=== PATIENT | male | born 1965 | race Hispanic/Latino ===

== ENCOUNTER 2022-12-17 15:12 | Emergency (ER) | payer OTHER ==
[2022-12-17] MEDS ORDERED: CYCLOBENZAPRINE 10 MG TAB ONE (16:10)
[2022-12-17] MEDS ORDERED: HYDROMORPHONE HCL 1 MG/ML INJ ONE (16:11)
[2022-12-17] MEDS ORDERED: ONDANSETRON 4 MG/2 ML VIAL ONE (16:11)
[2022-12-17] MEDS ORDERED: KETOROLAC 30 MG/ML INJ ONE (16:11)
--- NOTE | 2022-12-17 16:58 | RAD REPORT ---
EXAM DESCRIPTION: RAD - Lumbar Spine 3 Views - 12/17/2022 4:52 pm CLINICAL HISTORY: RADICULOPATHY Radiculopathy COMPARISON: No comparisons FINDINGS: Vertebral body heights appear maintained. No compression fracture noted. Mild disc thinnin g with posterior osteophyte formation lower lumbar levels. No spondylolysis or spondylolisthesis. IMPRESSION: Mild lower lumbar degenerative spondylosis.
--- NOTE | 2022-12-17 17:01 | EDPHYS ---
Physician Documentation [facility] Name: Jeffrey Bustamante Jr Age: 57 yrs Sex: Male : 1965 Arrival Date: 12/17/2022 Time: 15:12 Bed 14 Private MD: ED Physician Leilani Dennis HPI: 12/17 15:54 This 57 yrs old Male presents to ER via Wheelchair with complaints of Low Back sp3 Pain, Fall Injury. 15:54 57-year-old male with history of hypertension and diabetes and prior history of sp3 radiculopathy on the right side as well as cervical radiculopathy now presents with acute pain in the right lower back extending posteriorly into his right lower leg. Patient denies being on any pain medication at this time he also denies any loss of bowel or bladder control or any other neurological problems. 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 Patient has never had a stroke or other TIA type symptoms in the past. He currently denies headache, neck pain, fever, URI symptoms, chest pain, shortness of breath, upper back pain, abdominal pain, nausea, vomiting, diarrhea, pain in any other extremity besides the right lower extremity, travel history, trauma, known sick contacts, or any other signs or symptoms on ROS at this time.. Historical: - Allergies: 15:46 No Known Allergies; me1 - Home Meds: 15:46 lisinopril [Active]; omeprazole [Active]; metformin [Active]; Farxiga oral [Active]; me1 Ozempic subcutaneous [Active]; triseba [Active]; - PMHx: 15:46 Diabetes mellitus; Hypertensive disorder; GERD; me1 - PSHx: 15:46 None; me1 - Immunization history:: Adult Immunizations unknown. - Social history:: Smoking status: Patient reports the use of cigarette tobacco products, smokes one-half pack cigarettes per day. ROS: 16:01 Constitutional: Negative for fever, chills, and weight loss, Eyes: Negative for injury, sp3 pain, redness, and discharge, Neck: Negative for injury, pain, and swelling, Cardiovascular: Negative for chest pain, palpitations, and edema, Respiratory: Negative for shortness of breath, cough, wheezing, and pleuritic chest pain, Abdomen/GI: Negative for abdominal pain, nausea, vomiting, diarrhea, and constipation, : Negative for injury, bleeding, discharge, and swelling, Skin: Negative for injury, rash, and discoloration. 16:01 All other systems are negative. Exam: 16:01 Constitutional: This is a well developed, well nourished patient who is awake, alert, sp3 and in no acute distress. Head/Face: Normocephalic, atraumatic. Eyes: Pupils equal round and reactive to light, extra-ocular motions intact. Lids and lashes normal. Conjunctiva and sclera are non-icteric and not injected. Cornea within normal limits. Periorbital areas with no swelling, redness, or edema. Neck: Trachea midline, no thyromegaly or masses palpated, and no cervical lymphadenopathy. Supple, full range of motion without nuchal rigidity, or vertebral point tenderness. No Meningismus. Chest/axilla: Normal chest wall appearance and motion. Nontender with no deformity. No lesions are appreciated. Cardiovascular: Regular rate and rhythm with a normal S1 and S2. No gallops, murmurs, or rubs. Normal PMI, no JVD. No pulse deficits. Respiratory: Lungs have equal breath sounds bilaterally, clear to auscultation and percussion. No rales, rhonchi or wheezes noted. No increased work of breathing, no retractions or nasal flaring. Abdomen/GI: Soft, non-tender, with normal bowel sounds. No distension or tympany. No guarding or rebound. No evidence of tenderness throughout. Skin: Warm, dry with normal turgor. Normal color with no rashes, no lesions, and no evidence of cellulitis. Psych: Awake, alert, with orientation to person, place and time. Behavior, mood, and affect are within normal limits. 16:01 Back: Positive pain on straight leg raise on the right side. No pain on palpation. Distal neurovascular exam is normal right lower extremity.. Vital Signs: 15:30 BP 162 / 111; Pulse 89; Resp 16; Pulse Ox 100% on R/A; db 15:42 BP 162 / 105; Pulse 91; Resp 17; Temp 97.7(O); Pulse Ox 100% on R/A; Weight 87.54 kg; me1 Height 5 ft. 10 in. ; Pain 9/10; 16:08 BP 145 / 90; Pulse 89; Resp 16; Pulse Ox 100% on R/A; db 16:56 BP 161 / 103; Pulse 79; Resp 16; Pulse Ox 98% on R/A; db 15:42 Body Mass Index 27.69 (87.54 kg, 177.8 cm) me1 15:42 Pain Scale: Adult me1 MDM: 15:45 Patient medically screened. sp3 16:04 Data reviewed: vital signs, nurses notes, radiologic studies. ED course: 57-year-old sp3 male with right lumbar radiculopathy. Patient will need outpatient MRI. Will obtain x-rays here to rule out any sort of bony abnormality or decreasing disc space. We will administer Dilaudid, ketorolac, Zofran IV and Flexeril p.o. Once pain is under control, will discharge patient home on p.o. pain control with orthopedic follow-up for continued work-up and treatment. I met highly suspicious for vascular abnormality, spinal cord compression, or other critical illness.. 16:55 ED course: X-rays demonstrate no significant findings other than mild disc space sp3 narrowing between L4 and L5. We will reevaluate patient and once he has improved, we will safely discharge him home on p.o. meds.. 16:59 ED course: Patient feels much improved. We will safely discharge him home at this time..sp3 12/17 15:49 Order name: Lumbar Spine (3 Views) XRAY; Complete Time: 16:59 sp3 Administered Medications: 16:10 Drug: HYDROmorphone IVP 1 mg Route: IVP; Site: right antecubital; db 17:18 Follow up: Response: No adverse reaction db 16:10 Drug: Ketorolac IVP 30 mg Route: IVP; Site: right antecubital; db 17:17 Follow up: Response: No adverse reaction db 16:10 Drug: Ondansetron IVP 4 mg Route: IVP; Site: right antecubital; db 17:17 Follow up: Response: No adverse reaction db 16:10 Drug: Cyclobenzaprine PO 10 mg Route: PO; db 17:17 Follow up: Response: No adverse reaction db Disposition Summary: 12/17/22 17:00 Discharge Ordered Location: Home sp3 Condition: Stable sp3 Diagnosis - Lumbar radiculopathy right side, low back pain sp3 Followup: sp3 - With: Arsh Guthrie MD - When: Upon discharge from the Emergency Department - Reason: Recheck today's complaints Discharge Instructions: - Discharge Summary Sheet sp3 - Lumbosacral Radiculopathy sp3 Forms: - Medication Reconciliation Form sp3 - Thank You Letter sp3 - Antibiotic Education sp3 - Prescription Opioid Use sp3 - Patient Portal Instructions sp3 - Leadership Thank You Letter sp3 Prescriptions: - Cyclobenzaprine 10 mg Oral Tablet - take 1 tablet by ORAL route every 8 hours As needed; 30 tablet; Refills: 0, sp3 Product Selection Permitted - Tramadol 50 mg Oral Tablet - take 1 tablet by ORAL route every 8 hours as needed; 12 tablet; Refills: 0, sp3 Product Selection Permitted - Medrol (Lex) 4 mg Oral Tablets, Dose Pack - take 1 tablet by ORAL route as directed - follow package instructions; 1 sp3 packet; Refills: 0, Product Selection Permitted Signatures: Dispatcher [employer] Leilani Cantrell MD MD sp3 Acacia Moraes, RN RN db Bhumi Campuzano, RN RN me1
--- NOTE | 2022-12-17 17:01 | ER ---
Nurse's Notes [facility] Name: Jeffrey Bustamante Jr Age: 57 yrs Sex: Male : 1965 Arrival Date: 12/17/2022 Time: 15:12 Bed 14 Private MD: Diagnosis: Lumbar radiculopathy right side, low back pain Presentation: 12/17 15:42 Chief complaint: Patient states: holding his toddler and turned to set the baby down me1 and started having pain to bilateral lower back with pain that shoots down the back of his right leg. Coronavirus screen: Vaccine status: Patient reports being unvaccinated. At this time, the client does not indicate any symptoms associated with coronavirus-19. Ebola Screen: No symptoms or risks identified at this time. Initial Sepsis Screen: Does the patient meet any 2 criteria? No. Patient's initial sepsis screen is negative. Does the patient have a suspected source of infection? No. Patient's initial sepsis screen is negative. Risk Assessment: Do you want to hurt yourself or someone else? Patient reports no desire to harm self or others. Onset of symptoms was December 17, 2022. 15:42 Method Of Arrival: Wheelchair me1 15:42 Acuity: ANUSHKA 3 me1 Historical: - Allergies: 15:46 No Known Allergies; me1 - Home Meds: 15:46 lisinopril [Active]; omeprazole [Active]; metformin [Active]; Farxiga oral [Active]; me1 Ozempic subcutaneous [Active]; triseba [Active]; - PMHx: 15:46 Diabetes mellitus; Hypertensive disorder; GERD; me1 - PSHx: 15:46 None; me1 - Immunization history:: Adult Immunizations unknown. - Social history:: Smoking status: Patient reports the use of cigarette tobacco products, smokes one-half pack cigarettes per day. Screenin:16 [facility] ED Fall Risk Assessment (Adult) History of falling in the last 3 months, db including since admission Yes- single mechanical fall (1 pt) Confusion or Disorientation No (0 pts) Intoxicated or Sedated No (0 pts) Impaired Gait No (0 pts) Mobility Assist Device Used No (0 pt) Altered Elimination No (0 pt) Score/Fall Risk Level 0 - 2 = Low Risk Oriented to surroundings, Maintained a safe environment. Abuse screen: Denies threats or abuse. Denies injuries from another. Nutritional screening: No deficits noted. Tuberculosis screening: No symptoms or risk factors identified. Assessment: 16:00 Pain: Pain currently is 10 out of 10 on a pain scale. Quality of pain is described as db radiating, sharp. 16:55 Reassessment: Patient appears in no apparent distress at this time. Patient and/or db family updated on plan of care and expected duration. Pain level reassessed. Patient is alert, oriented x 3, equal unlabored respirations, skin warm/dry/pink. PATIENT RETURNED TO ROOM FROM CT. 17:14 Reassessment: Patient appears in no apparent distress at this time. Patient and/or db family updated on plan of care and expected duration. Pain level reassessed. Patient is alert, oriented x 3, equal unlabored respirations, skin warm/dry/pink. Patient states feeling better. Patient states symptoms have improved. General: Appears in no apparent distress. comfortable, Behavior is calm, cooperative. Pain: Complains of pain in back. Vital Signs: 15:30 BP 162 / 111; Pulse 89; Resp 16; Pulse Ox 100% on R/A; db 15:42 BP 162 / 105; Pulse 91; Resp 17; Temp 97.7(O); Pulse Ox 100% on R/A; Weight 87.54 kg; me1 Height 5 ft. 10 in. ; Pain 9/10; 16:08 BP 145 / 90; Pulse 89; Resp 16; Pulse Ox 100% on R/A; db 16:56 BP 161 / 103; Pulse 79; Resp 16; Pulse Ox 98% on R/A; db 15:42 Body Mass Index 27.69 (87.54 kg, 177.8 cm) me1 15:42 Pain Scale: Adult me1 ED Course: 15:17 Patient arrived in ED. im 15:21 Leilani Dennis MD is Attending Physician. sp3 15:46 Triage completed. me1 15:47 Acacia Moraes, PORSHA is Primary Nurse. db 15:48 Arm band placed on Patient placed in an exam room. db 16:53 Lumbar Spine (3 Views) XRAY In Process Unspecified. EDMS 17:00 Arsh Guthrie MD is Referral Physician. sp3 17:12 No provider procedures requiring assistance completed. db 17:16 Patient has correct armband on for positive identification. Bed in low position. Call db light in reach. Side rails up X 1. Provided Education on: DISCHARGE. 17:16 IV discontinued, intact, bleeding controlled, No redness/swelling at site. db Administered Medications: 16:10 Drug: HYDROmorphone IVP 1 mg Route: IVP; Site: right antecubital; db 17:18 Follow up: Response: No adverse reaction db 16:10 Drug: Ketorolac IVP 30 mg Route: IVP; Site: right antecubital; db 17:17 Follow up: Response: No adverse reaction db 16:10 Drug: Ondansetron IVP 4 mg Route: IVP; Site: right antecubital; db 17:17 Follow up: Response: No adverse reaction db 16:10 Drug: Cyclobenzaprine PO 10 mg Route: PO; db 17:17 Follow up: Response: No adverse reaction db Medication: 17:17 VIS not applicable for this client. db Outcome: 17:00 Discharge ordered by . sp3 17:12 Discharged to home ambulatory, with family. db 17:12 Condition: stable 17:12 Discharge instructions given to patient, Instructed on discharge instructions, follow up and referral plans. Demonstrated understanding of instructions, Prescriptions given X 3. 17:18 Patient left the ED. db Signatures: Dispatcher [employer] Leilani Cantrell MD MD sp3 Acacia Moraes, RN RN db Romy Marcelo Michelle, RN RN me1
[2022-12-17 17:31] VITALS: TEMP 97.7
[2022-12-17 17:32] VITALS: BP 161/103; O2SAT 98
== END 2022-12-17 17:18 | disposition home or self-care (01) ==
LOC: ER 15:12
DX: M54.16 Radiculopathy, lumbar region (principal); E11.9 Type 2 diabetes mellitus without complications; I10 Essential (primary) hypertension; F17.210 Nicotine dependence, cigarettes, uncomplicated
CPT/HCPCS: 72100; 96375; 96374; 99284; J1170; J2405